=== PATIENT | female | born 1965 | race Caucasian/White ===

== ENCOUNTER 2016-07-26 11:32 | Emergency (ER) | payer BC ==
[2016-07-26 11:36] VITALS: TEMP 37; Ht 177.8 cm
[2016-07-26 12:13] LABS: BASO % 0.2 %; BASO ABS # 0.02 K/uL (0-0.2); COMPLETE YES; EOS % 1.1 %; IG% 0.3 %; LYMPH % 4.8 %; LYMPH ABS # 0.58 K/uL (1.2-3.4); MEAN CELL VOLUME 88.5 fL (80-100); MEAN CORPUSCULAR HEMOGLOBIN 30.8 pg (25-34); MEAN CORPUSCULAR HGB CONC 34.8 g/dl (32-36); MEAN PLATELET VOLUME 9.6 fL (7.4-10.4); MONO % 2.1 %; NEUT % 91.5 %; PLATELET COUNT 244 K/uL (130-400); RED BLOOD COUNT 4.52 M/uL (4.2-5.4); WHITE BLOOD COUNT 12.16 K/uL (4.8-10.8)
[2016-07-26 12:20] LABS: ALT/SGPT 50 U/L (12-78); BLOOD UREA NITROGEN 19 mg/dl (7-18); BUN/CREATININE RATIO 18.7 (10-20); CALCIUM 8.9 mg/dl (8.5-10.1); CARBON DIOXIDE 24 mmol/L (21-32); CHLORIDE 100 mmol/L (98-107); CREATININE 0.99 mg/dl (0.60-1.20); GLUCOSE 201 mg/dl (70-99); POTASSIUM 4.1 mmol/L (3.5-5.1); SODIUM 138 mmol/L (136-145)
[2016-07-26] MEDS ORDERED: RIVA1TAB4 PO (12:20)
[2016-07-26] MEDS ORDERED: LISI-729 PO (12:20)
[2016-07-26] MEDS ORDERED: FLEC50TA20 PO (12:20)
[2016-07-26] MEDS ORDERED: ATOR-22 PO (12:20)
[2016-07-26] MEDS ORDERED: FLUO10CA48 PO (12:20)
[2016-07-26] MEDS ORDERED: INSPMPNVLG (12:20)
[2016-07-26] MEDS ORDERED: CHOL1000 PO (12:20)
[2016-07-26] MEDS ORDERED: CALC667C4 PO (12:20)
[2016-07-26] MEDS ORDERED: DILT120C68 PO (12:20)
[2016-07-26 12:23] LABS: ALKALINE PHOSPHATASE 138 U/L (45-117); AST/SGOT 29 U/L (15-37)
--- NOTE | 2016-07-26 12:52 | EMERGENCY ROOM VISIT NOTE ---
History Report prepared by Harley: Jace Jones Under the Supervision of: Dr. Uri Anderson M.D. First contact with patient: 12:38 Chief Complaint: DIARRHEA Stated Complaint: D, V, DEHYDRATED Nursing Triage Summary: pt states that pt woke him around 0600 and said she had been up all night with 'uncontrollable diahrea and vomiting' pt reports she felt fine at dinner and states 'i dont know maybe its food poisioning from something i ate' History of Present Illness The patient is a 50 year old female who presents to the Emergency Room with complaints of a persistent illness that started last night. Per the patient, she is now feeling much better with the fluids. Per the patient's , the patient started having episodes of diarrhea and vomiting last night. The patient says that she had a GI bug last week, and she thinks she just got the GI bug again. She states that the symptoms are similar to her GI bug last week. She denies a cough, fevers, shortness of breath, hematochezia, or urinary burning. She does think she is dehydrated. Nobody else in her family currently has similar symptoms. Per the patient's , the patient did pass out earlier. Source of History: patient, spouse/significant other Onset: Last night Position: other (global - illness) Timing: other (persistent) Associated Symptoms: + LOC, + diarrhea, + vomiting, No SOB, No chest pain, No cough, No fevers, No hematochezia, No urinary symptoms Note: No other associated symptoms noted. Review of Systems See HPI for pertinent positives & negatives. A total of 10 systems reviewed and were otherwise negative. Past Medical & Surgical Medical Problems: (1) Diabetes Surgical Problems: (1) H/O: hysterectomy Family History FHx: cancer Social History Smoking Status: Never Smoker Smokeless Tobacco Use: No Alcohol Use: occasionally Marital Status: Housing Status: lives with family Occupation Status: employed Current/Historical Medications Scheduled Atorvastatin (Lipitor), 20 MG PO DAILY Calcium Acetate (Phoslo 667 Mg), 1 CAP PO DAILY Cholecalciferol (Vitamin D3), 3 TAB PO DAILY Diltiazem Hcl Ext Rel (Tiazac), 120 MG PO DAILY Flecainide (Tambocor), 50 MG PO DAILY Fluoxetine (Prozac), 10 MG PO DAILY Insulin Aspart (novoLOG INSULIN PUMP ), 90 UNITS N/A UD Lisinopril (Zestril), 2.5 MG PO DAILY Ondasetron Odt (Zofran Odt), 4-8 MG SL Q6H Rivaroxaban (Xarelto), 20 MG PO DAILY Allergies Uncoded Allergies: CEFZIL (Adverse Reaction, Unknown, hives, 07/26/16) Physical Exam Vital Signs Date Time Temp Pulse Resp B/P Pulse Ox O2 Delivery O2 Flow Rate FiO2 07/26/16 15:18 98 20 139/79 97 Room Air 07/26/16 13:39 83 18 129/83 98 Room Air 07/26/16 11:36 37.0 108 20 125/82 98 Room Air Physical Exam GENERAL: Patient is dry appearing and in minimal distress. HEENT: No acute trauma, normocephalic atraumatic, mucous membranes dry, no nasal congestion, no scleral icterus. NECK: No stridor, no adenopathy, no meningismus, trachea is midline. LUNGS: No dyspnea. Clear to auscultation and equal bilaterally. No wheeze, no rhonchi. HEART: Regular rate and rhythm. No murmurs, rubs, gallops appreciated. ABDOMEN: Soft, nontender, bowel sounds positive, no masses appreciated, no peritonitis. BACK: No midline tenderness, no CVA tenderness EXTREMITIES: Normal motion all extremities, no cyanosis, no edema. NEUROLOGIC: Alert and oriented, no acute motor or sensory deficits, no focal weakness, cranial nerves grossly intact. SKIN: No rash, no jaundice, no diaphoresis. Medical Decision & Procedures Laboratory Results 07/26/16 11:55 Red Blood Count 4.52, Mean Corpuscular Volume 88.5, Mean Corpuscular Hemoglobin 30.8, Mean Corpuscular Hemoglobin Concent 34.8, Mean Platelet Volume 9.6, Neutrophils (%) (Auto) 91.5, Lymphocytes (%) (Auto) 4.8, Monocytes (%) (Auto) 2.1, Eosinophils (%) (Auto) 1.1, Basophils (%) (Auto) 0.2, Neutrophils # (Auto) 11.14, Lymphocytes # (Auto) 0.58, Monocytes # (Auto) 0.25, Eosinophils # (Auto) 0.13, Basophils # (Auto) 0.02 07/26/16 11:55 Test 07/26/16 11:55 07/26/16 13:30 White Blood Count 12.16 K/uL (4.8-10.8) Red Blood Count 4.52 M/uL (4.2-5.4) Hemoglobin 13.9 g/dL (12.0-16.0) Hematocrit 40.0 % (37-47) Mean Corpuscular Volume 88.5 fL (80-100) Mean Corpuscular Hemoglobin 30.8 pg (25-34) Mean Corpuscular Hemoglobin Concent 34.8 g/dl (32-36) Platelet Count 244 K/uL (130-400) Mean Platelet Volume 9.6 fL (7.4-10.4) Neutrophils (%) (Auto) 91.5 % Lymphocytes (%) (Auto) 4.8 % Monocytes (%) (Auto) 2.1 % Eosinophils (%) (Auto) 1.1 % Basophils (%) (Auto) 0.2 % Neutrophils # (Auto) 11.14 K/uL (1.4-6.5) Lymphocytes # (Auto) 0.58 K/uL (1.2-3.4) Monocytes # (Auto) 0.25 K/uL (0.11-0.59) Eosinophils # (Auto) 0.13 K/uL (0-0.5) Basophils # (Auto) 0.02 K/uL (0-0.2) RDW Standard Deviation 42.2 fL (36.4-46.3) RDW Coefficient of Variation 13.1 % (11.5-14.5) Immature Granulocyte % (Auto) 0.3 % Immature Granulocyte # (Auto) 0.04 K/uL (0.00-0.02) Anion Gap 14.0 mmol/L (3-11) Estimated GFR () 75.9 Estimated GFR (Non- 65.5 BUN/Creatinine Ratio 18.7 (10-20) Calcium Level 8.9 mg/dl (8.5-10.1) Total Bilirubin 1.1 mg/dl (0.2-1) Aspartate Amino Transf (AST/SGOT) 29 U/L (15-37) Alanine Aminotransferase (ALT/SGPT) 50 U/L (12-78) Alkaline Phosphatase 138 U/L (45-117) Total Protein 8.0 gm/dl (6.4-8.2) Albumin 4.0 gm/dl (3.4-5.0) Globulin 4.0 gm/dl (2.5-4.0) Albumin/Globulin Ratio 1.0 (0.9-2) Lipase 99 U/L (73-393) Urine Color YELLOW Urine Appearance CLEAR (CLEAR) Urine pH 6.0 (4.5-7.5) Urine Specific [place] 1.015 (1.000-1.030) Urine Protein NEG (NEG) Urine Glucose (UA) TRACE (NEG) Urine Ketones NEG (NEG) Urine Occult Blood NEG (NEG) Urine Nitrite NEG (NEG) Urine Bilirubin NEG (NEG) Urine Urobilinogen NEG (NEG) Urine Leukocyte Esterase NEG (NEG) Laboratory results as reviewed by me. Medications Administered Medications (Trade) Dose Ordered Sig/Miguel A Route Start Time Stop Time Status Last Admin Dose Admin Sodium Chloride (Nss 1000ml) 1,000 ml @ 999 mls/hr Q1H1M STAT IV 07/26/16 12:55 07/26/16 13:55 DC 07/26/16 12:55 999 MLS/HR Ondansetron HCl (ZOFRAN ODT 4MG Home Pack) 1 homepack UD ONCE PO 07/26/16 15:15 07/26/16 15:16 DC 07/26/16 15:23 1 HOMEPACK ECG Indication: other (diarrhea) Rate (beats per minute): 95 Findings: no acute ischemic change, no ectopy ED Course 1245: The patient was evaluated in room B5. A complete history and physical exam was performed. 1255: Ordered NSS 1000 ml @ 999 mls/hr IV. 1406: I reevaluated the patient and she notes that she is feeling much better. 1452: I reevaluated the patient and she feels good and wants to go home. The patient verbally expressed understanding and agreement of the treatment plan. The patient will be discharged. 1515: Ordered Zofran ODT 4MG Home Pack 1 homepack PO. Medical Decision Differential: Gastroenteritis, Food Borne, Esophageal Perforation, , Electrolyte Abnormality, Dehydration, Intraabdominal Infection, UTI/ Pyelonephritis, Bowel Obstruction, Biliary Pathology, amongst other pathology entertained. 50 yr old female arrives following syncopal/near syncope while at home that caught her. This occurred after 12 hours of constant vomiting and diarrhea. No headache nor neuro deficits. No head injury. She is on blood thinner for PAFif though without any headache, neuro deficits nor head injury and fact she will be with seems reasonable to hold off on CT Head as clear reason otherwise for syncope. Clearly dehydrated by exam and vastly improved with NSS bolus. EKG/Trop negative. Labs look good. She is feeling well and wishes to go home. Will treat with zofran for nausea/vomiting. Stressed keeping well hydrated. Reviewed symptoms requiring RTED. This is likely viral vs food poisoning gastroenteritis. Impression Primary Impression: Nausea, vomiting and diarrhea Additional Impressions: Dehydration Syncope Scribe Attestation The scribe's documentation has been prepared under my direction and personally reviewed by me in its entirety. I confirm that the note above accurately reflects all work, treatment, procedures, and medical decision making performed by me. Departure Information Dispostion Home / Self-Care Prescriptions Ondasetron Odt (ZOFRAN ODT) 4 Mg Tab 4-8 MG SL Q6H for Nausea, #20 TAB Prov: Uri Anderson M.D. 07/26/16 Referrals No Doctor, Assigned (PCP) Patient Instructions ED Gastroenteritis Vs Food Poison, [facility] Problem Qualifiers Additional Impressions: Syncope Syncope type: unspecified Qualified Codes: R55 - Syncope and collapse
[2016-07-26] MEDS ORDERED: SODIUM CHLORIDE 0.9% 1000ML 1,000 ML IV STA (12:55)
[2016-07-26 13:45] LABS: MANUAL MICROSCOPIC REQUIRED? NO; URINE APPEARANCE CLEAR (CLEAR); URINE BILIRUBIN NEG (NEG); URINE COLOR YELLOW; URINE NITRITE NEG (NEG); URINE SPECIFIC GRAVITY 1.015 (1.000-1.030); UROBILINOGEN NEG (NEG)
[2016-07-26 13:46] LABS: REVIEW REQ? NO; ZZUR CULT IF INDIC CLEAN CATCH NO
[2016-07-26] MEDS ORDERED: ONDA4TAB10 SL (15:01)
[2016-07-26] MEDS ORDERED: ONDANSETRON HOME PACK 4MG OD TAB PO ONE (15:15)
[2016-07-26 15:18] VITALS: BP 139/79; PULSE 98; O2SAT 97
== END 2016-07-26 15:27 | disposition home or self-care (01) ==
LOC: C.EDB 11:35
DX: E86.0 Dehydration (principal); R11.2 Nausea with vomiting, unspecified; R19.7 Diarrhea, unspecified; R55 Syncope and collapse; E11.9 Type 2 diabetes mellitus without complications; Z90.710 Acquired absence of both cervix and uterus; Z79.4 Long term (current) use of insulin; Z79.899 Other long term (current) drug therapy; Z88.8 Allergy status to other drugs, medicaments and biological substances; Z80.9 Family history of malignant neoplasm, unspecified